=== PATIENT | female | born 1995 | race Two or more races ===

== ENCOUNTER 2024-11-22 10:26 | Emergency (ER) | payer MEDICAID, OTHER ==
[~2024-11-22] VITALS: Ht 170.2 cm; Wt 84.7 kg
--- NOTE | 2024-11-22 10:50 | ED.PDOC ---
History of Present Illness HPI Comments 29-year-old female who comes in with chief complaint of vaginal bleeding as well as some abdominal pain. The patient states that she was and found out that she had some spotting on Wednesday. She states that she is also having some abdominal cramping which she rates as an 8/10. She is also having some mild diarrhea. She does have her 1st OB appointment on Wednesday with Dr. Hart. She is a Chief Complaint: Vaginal Bleed Time Seen by MD: 10:32 Reviewed Notes: Nurses Notes, Medications, Allergies (No allergies to medications) Allergies: Coded Allergies: NO KNOWN ALLERGIES (Unverified , 11/22/24) Information Source: Patient Mode of Arrival: Ambulatory Severity: Mild Timing: Days Duration: Since onset Prehospital treatment: None Associated signs and symptoms The patient has diarrhea with the vaginal bleeding and cramping Past Medical History PAST MEDICAL HISTORY: Denies Surgical History: BANANA HANDLER History: No Pertinent BANANA HANDLER History Family History Family History: Family hx of DM Social History Smoker: Non-Smoker Alcohol: Occasionally Drugs: Denies Drug Use Lives In: Home Constitutional: denies: chills, diaphoresis, fatigue, fever, malaise, sweats, weakness, others EENTM: denies: blurred vision, double vision, ear bleeding, ear discharge, ear drainage, ear pain, ear ringing, eye pain, eye redness, hearing loss, mouth pain, mouth swelling, nasal discharge, nose bleeding, nose congestion, nose pain, photophobia, tearing, throat pain, throat swelling, voice changes, others Respiratory: denies: cough, hemoptysis, orthopnea, SOB at rest, shortness of breath, SOB with excertion, stridor, wheezing, others Cardiovascular: denies: chest pain, dizzy spells, diaphoresis, Dyspnea on exertion, edema, irregular heart beat, left arm pain, lightheadedness, palpitations, PND, syncope, others Gastrointestinal: reports: diarrhea; denies: abdomen distended, abdominal pain, blood streaked bowels, constipated, dysphagia, difficulty swallowing, hematemesis, melena, nausea, poor appetite, poor fluid intake, rectal bleeding, rectal pain, vomiting, others Genitourinary: reports: abnormal vagina bleeding, ; denies: burning, dyspareunia, dysuria, flank pain, frequency, hematuria, incontinence, pain, vagina discharge, urgency, others Neurological: denies: dizziness, fainting, headache, left sided numbness, left sided weakness, numbness, paresthesia, pre-existing deficit, right sided numbness, right sided weakness, seizure, speech problems, tingling, tremors, weakness, others Musculoskeletal: denies: back pain, gout, joint pain, joint swelling, muscle pain, muscle stiffness, neck pain, others Integumetry: denies: bruises, change in color, change in hair/nails, dryness, laceration, lesions, lumps, rash, wounds, others Allergic/Immunocompromised: denies: Difficulty Healing, Frequent Infections, Hives, Itching, others Hematologic/Lymphatic: denies: anemia, blood clots, easy bleeding, easy bruising, swollen glands, others Endocrine: denies: excessive hunger, excessive sweating, excessive thirst, excessive urination, flushing, intolerance to cold, intolerance to heat, unexplained weight gain, unexplained weight loss, others Psychiatric: denies: anxiety, bipolar disorder, depression, hopeless, panic disorder, schizophrenia, sleepless, suicidal, others Physical Exam General Appearance: No Apparent Distress HEENT: Normal ENT Inspection, Pharynx Normal, TMs Normal Neck: Full Range of Motion, Non-Tender, Normal, Normal Inspection Respiratory: Chest Non-Tender, Lungs Clear, No Accessory Muscle Use, No Respiratory Distress, Normal Breath Sounds Cardiovascular: No Edema, No JVD, No Murmur, No Gallop, Normal Peripheral Pulses, Regular Rate/Rhythm Breast Exam: Deferred Gastrointestinal: No Organomegaly, Non Tender, No Pulsatile Mass, Normal Bowel Sounds, Soft Genitalia: Deferred Pelvic: Deferred Rectal: Deferred Extremities: No calf tenderness, Normal capillary refill, Normal inspection, Normal range of motion, Non-tender, No pedal edema Musculoskeletal : Apperance: Normal Neurologic: Alert, circus supervisor II-XII nml as Tested, No Motor Deficits, Normal Affect, Normal Mood, No Sensory Deficits Cerebellar Function: Normal Reflexes: Normal Skin: Dry, Normal Color, Warm Lymphatic: No Adenopathy Was a procedure done? Was a procedure done?: No Differential Dx Considerations may include: Threatened , ectopic , UTI X-Ray, Labs, Meds, VS Vital Signs Date Time Temp Pulse Resp B/P (MAP) Pulse Ox O2 Delivery O2 Flow Rate FiO2 3/12/25 13:58 98.6 69 18 96/57 (70) 96 98.6 11/22/24 11:45 98.8 78 16 100/48 (65) 98 98.8 11/22/24 11:45 78 16 98 Room Air* 0 21 11/22/24 10:35 98.7 83 18 104/70 (81) 97 Lab Test 11/22/24 11:00 Range/Units Urine Color Light-yellow Yellow Urine Clarity Clear Clear Urine pH 8.0 5.0-9.0 Urine Specific [place] 1.012 1.001-1.035 Urine Protein Negative Negative Urine Ketones Negative Negative Urine Blood Negative Negative /uL Urine Nitrite Negative Negative Urine Bilirubin Negative Negative Urine Urobilinogen Normal Negative mg/dL Urine Leukocyte Esterase Negative Negative /uL Urine RBC <1 0 - 4 /hpf Urine Microscopic WBC < 1 0-5 /HPF Urine Squamous Epithelial Cells Few <5 /hpf Urine Bacteria None seen None Seen /hpf Urine Glucose Normal Normal mg/dL Beta HCG, Quantitative 38920.3 H 1.5-4.2 mIU/mL Ultrasound of the pelvis shows: IMPRESSION: 1. Single viable intrauterine with gestational age of 6 weeks 0 days based on crown-rump length measurement. 2. 3.1 x 2.7 cm thick-walled corpus luteal cyst in the right ovary. The patient has a [place] [address] At this time, the patient is being discharged The patient will follow up with her OBGYN on Wednesday Images Reviewed?: Images reviewed and evaluated by me Time of 1ST Reevaluation: 10:49 Reevaluation 1ST: Improved Patient Education/Counseling: Diagnosis, Treatment, Prognosis, Need For Follow Up Family Education/Counseling: No Family Present Departure 1 Departure Time of Disposition: 14:49 Impression: Primary Impression: Threatened Disposition: 01 HOME / SELF CARE / HOMELESS Condition: Fair Discharged With: Self Critical Care Note Critical Care Time?: No Stability Stability form required: No Heart Score Heart Score: Heart Score Response (Comments) Value History N/A 0 EKG N/A 0 Age N/A 0 Risk Factors N/A 0 Troponin N/A [address] MD Nov 22, 2024 10:50
[2024-11-22 11:45] VITALS: PULSE 78; RESP 16; O2SAT 98
--- NOTE | 2024-11-22 12:34 | DVH ---
OB ULTRASOUND CLINICAL HISTORY: pain and bleeding TECHNIQUE: Transabdominal and Transvaginal OB ultrasound. Comparison: None FINDINGS: The uterus measures 10.9 x 6.7 x 7.3 cm. There is a gestational sac within the uterus with a mean sac diameter of 1.67 cm. Within the gestational sac a yolk sac and pole are identified. The crown- rump length measures 0.31 cm which corresponds to a gestational age of 6 weeks 0 days. heart ac tivity is demonstrated with heart tone of 110 BPM. The right ovary measures 4.8 x 3.9 x 2.6 cm. The left ovary measures 3.9 x 1.5 x 2.6 cm. There is a 3 .1 x 2.7 cm thick walled cyst in the right ovary likely a corpus luteal cyst. The left ovary appears within normal limits. There is no evidence of an adnexal mass. There is free fluid in the cul-de-sac. IMPRESSION: 1. Single viable intrauterine with gestational age of 6 weeks 0 days based on crown-rump le ngth measurement. 2. 3.1 x 2.7 cm thick-walled corpus luteal cyst in the right ovary. 3. Free fluid in the cul-de-sac. HS:Y
[2024-11-22 12:59] LABS: Urine Bacteria None Seen /hpf (None Seen)
[2024-11-22 14:17] LABS: Urine Blood Negative /uL (Negative); Urine Clarity Clear (Clear); Urine Color Light-Yellow (Yellow); Urine Protein, UAD Negative (Negative); Urine Specific Gravity 1.012 (1.001-1.035); Urine Squamous Epithelial Cell FEW /hpf (<5); Urine Urobilinogen Normal (Negative); Urine WBC < 1 /HPF (0-5)
[2024-11-22 16:05] VITALS: BP 102/59; PULSE 63; RESP 18; TEMP 97.7; O2SAT 100
== END 2024-11-22 16:06 | disposition home or self-care (01) ==
LOC: ER 10:26
DX: O20.0 Threatened abortion (principal); Z98.890 Other specified postprocedural states; Z3A.01 Less than 8 weeks gestation of pregnancy
CPT/HCPCS: 36415; 76801; 76817; 81001; 84702